=== PATIENT | female | born 1965 | race Caucasian/White ===

== ENCOUNTER 2022-03-22 09:32 | Emergency (ER) | payer BC, SELFPAY ==
[2022-03-22 09:37] VITALS: BP 121/62; PULSE 108; RESP 16; TEMP 36.4; O2SAT 100
--- NOTE | 2022-03-22 09:37 | ED.URI ---
HPI - URI/Sore Throat General Chief Complaint: Upper Respiratory Infection Stated Complaint: cold flu Time Seen by Provider: 03/22/22 09:37 Source: patient and RN notes reviewed History of Present Illness HPI Narrative: patient is a 56-year-old female presents to the Urgent Care with complaints of fatigue and body ache that started this morning. Patient states her is at home ill but was not diagnosed with any illness. States that he has had exposure at work to influenza. Patient has not taken anything [id number] for her symptoms this morning. Denies any known fevers, nausea, vomiting, cough. Patient is requesting Tamiflu and is already called to verify that her pharmacy has it in stock. No other acute complaints. No acute distress noted. Patient aware of the plan of care. Some parts of this dictation were generated by voice recognition software and may contain typographical and/or grammatical inaccuracies. Related Data Home Medications Medication Instructions Recorded Confirmed No Home Medications 03/22/22 03/22/22 Allergies Allergy/AdvReac Type Severity Reaction Status Date / Time Penicillins Allergy Unknown Unknown Verified 03/22/22 09:58 Sulfa (Sulfonamide Allergy Unknown Other Verified 03/22/22 09:58 Antibiotics) Review of Systems Review of Systems: CONSTITUTIONAL: Denies fever, chills, or sweats. reports of fatigue EYES: Denies visual changes, redness, or discharge. ENT: Denies rhinorrhea, congestion, sore throat, or otalgia. CARDIOVASCULAR: Denies chest pain, palpitations, or edema. RESPIRATORY: Denies cough or dyspnea. GASTROINTESTINAL: Denies abdominal pain, nausea, vomiting, or diarrhea. GENITOURINARY: Denies dysuria or hematuria. SKIN: Denies rash or itching. MUSCULOSKELETAL: Denies back pain, joint pain. Reports body aches NEUROLOGIC: Denies headache, numbness, or weakness. All other systems reviewed are negative, except as documented in HPI. PMFSH Comments At the time of my signature, I reviewed and agree with the nursing past medical, surgical, social, and family history. There is no relevant family history pertinent to the patient complaint. Exam Narrative: GENERAL: This is a well-nourished, well-developed patient, in no apparent distress. HEAD: normocephalic, atraumatic. EYES: PERRL. Sclera clear/white. Vision is grossly intact. EARS: External ears normal, auditory canals clear and without drainage, TMs normal without perforation. Hearing grossly intact. NOSE: External nose normal with no obvious nasal discharge, nares without redness, no rhinorrhea. THROAT: Mucous membranes moist, posterior pharynx clear. mild postnasal drainage NECK: Neck supple CARDIOVASCULAR: Regular rate and rhythm without murmurs, gallops, or rubs. RESPIRATORY: Clear to auscultation. Breath sounds equal bilaterally. No wheezes, rales, or rhonchi. SKIN: warm, intact with no suspicious lesions or rash, good texture and turgor. NEURO: awake, alert, and oriented to person, place and time. There were no obvious focal neurologic abnormalities. EXTREMITIES: No clubbing, cyanosis, or edema. Course Course Level of Care: Express Care Visit Vital Signs Vital signs: Vital Signs Temperature 97.6 F 03/22/22 09:37 Pulse Rate 108 H 03/22/22 09:37 Respiratory Rate 16 03/22/22 09:37 Blood Pressure 121/62 03/22/22 09:37 Pulse Oximetry 100 03/22/22 09:37 Oxygen Delivery Room Air 03/22/22 09:37 Temperature 97.6 F 03/22/22 09:37 Pulse Rate 108 H 03/22/22 09:37 Respiratory Rate 16 03/22/22 09:37 Blood Pressure 121/62 03/22/22 09:37 Pulse Oximetry 100 03/22/22 09:37 Oxygen Delivery Room Air 03/22/22 09:37 reviewed MDM - URI/Sore Throat MDM Narrative Medical decision making narrative: explained to the patient that Tamiflu may not treat her symptoms considering she is negative for influenza. Tamiflu is not a treatment for the flu and if you are symptomatic would
== END 2022-03-22 10:23 | disposition home or self-care (01) ==
PROVIDERS: Emergency Provider Nurse Practitioner Family; PCP Family Medicine
DX: B34.9 Viral infection, unspecified (principal)
CPT/HCPCS: 87804; 99203; G0463